=== PATIENT | female | born 1935 | race Caucasian/White ===

== ENCOUNTER 2017-01-21 16:38 | Observation (INO) | payer OTHER ==
[2017-01-21] VITALS (8 sets, daily range): BP systolic 106–142; BP diastolic 63–82; PULSE 58–98; RESP 14–18; TEMP 97.4–98.4; O2SAT 94–99
[~2017-01-21] VITALS: Ht 170.2 cm; Wt 100.0 kg
--- NOTE | 2017-01-21 17:30 | PD ---
HPI Chief Complaint: Cardiac Complaint Time Seen by Provider: 17:25 Travel History International Travel<30 days: No Contact w/Intl Traveler<30days: No Traveled to known affect area: No History of Present Illness HPI 81-year-old female that presents to the ED for evaluation of atrial fibrillation. Per patient she has a chronic history of present fibrillation for almost 20 years. Per patient she is not from town and she is from [place]. Per patient she's coming here for about 3 months. Per patient before coming she had an appointment with her hand patcher as it seemed like her age of fibrillation was starting to act up and they decided that they will do an ablation when she gets back in March. Per patient she's been doing okay and taking her medications but she is not and since yesterday whenever she walks and ambulates she gets palpitations and sensation to her heart rates racing. Per patient she has some discomfort as well. Per patient if she is sitting or laying and not moving she is okay and she has no symptoms. Patient states that right now at this time when she is laying on the bed she has no symptoms whatsoever. Per patient she does state that whenever she ambulate she is the symptoms. She does take Pradaxa. She states that she is compliant with her medications including metoprolol for her heart rate. She denies any chest pain per se. She does state having some shortness of breath with exertion when she feels the palpitations. Again she is completely asymptomatic at this time. She does tell me that she follows with Dr. Farnsworth here but she has not seen him for years. Per patient she tried to make an appointment with this doctor but she was not able to get an appointment until late January. PFSH Past Medical History Hx Anticoagulant Therapy: Yes (PRADAXA 150MG PO DAILY) Atrial Fibrillation: Yes (hx of cardioversion december 12, 2016) Cardiovascular Problems: Yes (AFIB) Respiratory: Yes ?: Not Past Surgical History Hysterectomy: Yes Social History Alcohol Use: Yes (on occasion) Tobacco Use: No Substance Use: No Allergies-Medications (Allergen,Severity, Reaction): Coded Allergies: Amiodarone (Unverified Allergy, Mild, 01/21/17) Fosamax (Unverified Allergy, Mild, 01/21/17) Heparin (Unverified Allergy, Mild, 01/21/17) Lisinopril (Unverified Allergy, Mild, 01/21/17) Reported Meds & Prescriptions Reported Meds & Active Scripts Active Reported Potassium Chloride ER (Potassium Chloride) 10 Meq Tab 10 Meq PO DAILY PRN Lasix (Furosemide) 20 Mg Tab 20 Mg PO DAILY PRN Restasis Opth 0.05% (Cyclosporine Opth 0.05%) 0.05% Emul 1 Drop EACH EYE HS Systane Opth Drops (Polyethylene Glycol-Propylene Glycol Opth Drp) 0.4-0.3% Soln 1-2 Drop EACH EYE DAILY IN THE AM Stool Softener (Docusate Sodium) 100 Mg Cap 100 Mg PO DAILY PRN Calcium 600 + Vit D Tablet (Calcium Carbonate/Vitamin D3) 1 Each Tablet 1 Tab PO DAILY Losartan (Losartan Potassium) 50 Mg Tab 50 Mg PO DAILY Flecainide (Flecainide Acetate) 50 Mg Tab 75 Mg PO BID Metoprolol Tartrate 25 Mg Tab 12.5 Mg PO BID Pradaxa (Dabigatran) 150 Mg Cap 150-300 Mg PO DAILY Alprazolam 0.25 Mg Tab 0.25-0.5 Mg PO HS PRN Tramadol (Tramadol HCl) 50 Mg Tab 50 Mg PO Q8H PRN Levothyroxine (Levothyroxine Sodium) 25 Mcg Tab 225 Mcg PO DAILY Take 1 tablet (25mcg) w/200mcg tab for a total dose of 225mcg Levothyroxine (Levothyroxine Sodium) 200 Mcg Tab 225 Mcg PO DAILY Take 1 tablet (200mcg) w/25mcg tablet for a total dose of 225mcg Review of Systems Except as stated in HPI: all other systems reviewed are Neg Physical Exam Narrative GENERAL: SKIN: Warm and dry. HEAD: Atraumatic. Normocephalic. EYES: Pupils equal and round. No scleral icterus. No injection or drainage. ENT: No nasal bleeding or discharge. Mucous membranes pink and moist. Tongue is midline. No uvula deviation. NECK: Trachea midline. No JVD. CARDIOVASCULAR: Irregular rate and rhythm. No obvious murmurs, S3, S4. RESPIRATORY: No accessory muscle use. Clear to auscultation. Breath sounds equal bilaterally. GASTROINTESTINAL: Abdomen soft, non-tender, nondistended. Hepatic and splenic margins not palpable. MUSCULOSKELETAL: Extremities without clubbing, cyanosis, or edema. No obvious deformities. Full range of motion of the upper and lower extremities bilaterally. Pupils pulses bilaterally. NEUROLOGICAL: Awake and alert. No obvious cranial nerve deficits. Motor grossly within normal limits. Five out of 5 muscle strength in the arms and legs. Normal speech. PSYCHIATRIC: Appropriate mood and affect; insight and judgment normal. Data Data Last Documented VS Vital Signs Date Time Temp Pulse Resp B/P Pulse Ox O2 Delivery O2 Flow Rate FiO2 01/21/17 19:16 91 16 106/82 95 Room Air 01/21/17 16:42 97.4 Orders Electrocardiogram (01/21/17 17:12) Complete Blood Count With Diff (01/21/17 17:12) Basic Metabolic Panel (Bmp) (01/21/17 17:12) Troponin I (01/21/17 17:12) B-Type Natriuretic Peptide (01/21/17 17:12) Magnesium (Mg) (01/21/17 17:12) Thyroid Stimulating Hormone (01/21/17 17:12) Chest, Single Ap (01/21/17 17:12) Iv Access Insert/Monitor (01/21/17 17:12) Ecg Monitoring (01/21/17 17:12) Oximetry (01/21/17 17:12) Orthostatic Vital Signs (01/21/17 18:17) Coag Profile (01/21/17 18:57) D-Dimer (01/21/17 19:24) Admit Order (Ed Use Only) (01/21/17 19:24) Labs Laboratory Tests Test 01/21/17 17:18 White Blood Count 9.6 TH/MM3 Red Blood Count 4.95 MIL/MM3 Hemoglobin 15.4 GM/DL Hematocrit 46.8 % Mean Corpuscular Volume 94.6 FL Mean Corpuscular Hemoglobin 31.1 PG Mean Corpuscular Hemoglobin 32.9 % Concent Red Cell Distribution Width 14.2 % Platelet Count 224 TH/MM3 Mean Platelet Volume 7.8 FL Neutrophils (%) (Auto) 70.9 % Lymphocytes (%) (Auto) 21.0 % Monocytes (%) (Auto) 6.0 % Eosinophils (%) (Auto) 1.7 % Basophils (%) (Auto) 0.4 % Neutrophils # (Auto) 6.8 TH/MM3 Lymphocytes # (Auto) 2.0 TH/MM3 Monocytes # (Auto) 0.6 TH/MM3 Eosinophils # (Auto) 0.2 TH/MM3 Basophils # (Auto) 0.0 TH/MM3 CBC Comment DIFF FINAL Differential Comment Sodium Level 142 MEQ/L Potassium Level 5.0 MEQ/L Chloride Level 105 MEQ/L Carbon Dioxide Level 30.5 MEQ/L Anion Gap 7 MEQ/L Blood Urea Nitrogen 29 MG/DL Creatinine 1.17 MG/DL Estimat Glomerular Filtration 45 ML/MIN Rate Random Glucose 146 MG/DL Calcium Level 9.0 MG/DL Magnesium Level 2.3 MG/DL Troponin I LESS THAN 0.02 NG/ML B-Type Natriuretic Peptide 452 PG/ML Thyroid Stimulating Hormone 0.599 uIU/ML 3rd Gen [facility] Medical Decision Making Medical Screen Exam Complete: Yes Emergency Medical Condition: Yes Medical Record Reviewed: Yes Interpretation(s) EKG show A. fib but no RVR. HR in the 80s. No ischemic changes read by me and attending. Last Impressions Chest X-Ray 01/21/17 1712 Signed Impressions: Service Date/Time: December 17:27 - CONCLUSION: Elevated right hemidiaphragm. Otherwise no evidence of acute process. Nile Hernandez MD CBC & BMP Diagram 01/21/17 17:18 troponin and CKMB negative BNP in the 400s Differential Diagnosis Chest pain versus atrial fibrillation versus A. fib with RVR versus symptomatic A. fib versus ACS versus hyperthyroidism Narrative Course 81-year-old female that presents to the ED for evaluation of atrial fibrillation. Patient was properly examined and was found to have signs and symptoms consistent with symptomatic A. fib. Labs and imaging were ordered. Labs and imaging showed A. fib. Patient has an elevated BNP. Questionable heart failure. Patient again is asymptomatic while sitting. We had the patient ambulate with a monitor and her heart rate did went high to 101 but she was more symptomatic complaining of shortness of breath. My attending Dr. Ortiz evaluated the patient and recommends admission for further workup of exertional dyspnea. Questionable whether this is heart failure. NAVEEN was paged and Dr Dunn agrees to admission. Diagnosis Primary Impression: Dyspnea on exertion Additional Impressions: HF (heart failure) Qualified Code: I50.9 - Heart failure, unspecified heart failure chronicity, unspecified heart failure type A-fib Qualified Code: I48.91 - Atrial fibrillation, unspecified type Murray Lopez Jan 21, 2017 17:30
[2017-01-21 17:38] LABS: AUTOMATED NEUTROPHIL # 6.8 TH/MM3 (1.8-7.7); BASOPHIL % 0.4 % (0.0-2.0); EOSINOPHIL # 0.2 TH/MM3 (0-0.4); EOSINOPHIL % 1.7 % (0.0-4.0); HEMATOCRIT 46.8 % (35.0-46.0); HEMO FLAGS DIFF FINAL; MEAN CELL VOLUME 94.6 FL (80.0-100.0); MEAN CORPUSCULAR HEMOGLOBIN 31.1 PG (27.0-34.0); MEAN CORPUSCULAR HGB CONC 32.9 % (32.0-36.0); NEUT % 70.9 % (16.0-70.0); PLATELET COUNT 224 TH/MM3 (150-450); RED BLOOD COUNT 4.95 MIL/MM3 (4.00-5.30); RED CELL DISTRIBUTION WIDTH 14.2 % (11.6-17.2); WHITE BLOOD COUNT 9.6 TH/MM3 (4.0-11.0)
--- NOTE | 2017-01-21 17:43 | RADRPT ---
EXAM DATE/TIME: 01/21/2017 17:27 [facility] COMPARISON: No previous studies available for comparison. INDICATIONS : Palpitations. MEDICAL HISTORY : A-fib. SURGICAL HISTORY : None. ENCOUNTER: Initial ACUITY: 2 days PAIN SCORE: 0/10 LOCATION: Bilateral chest FINDINGS: Significant elevation of the right hemidiaphragm is noted. Lungs are less clear. Heart is normal in size. CONCLUSION: Elevated right hemidiaphragm. Otherwise no evidence of acute process. Nile Hernandez MD on January 21, 2017 at 17:40 Board Certified Radiologist. This report was verified electronically.
[2017-01-21] MEDS ORDERED: REST0.05 EACH EYE (18:00)
[2017-01-21] MEDS ORDERED: FLEC1TAB8 PO (18:00)
[2017-01-21] MEDS ORDERED: LEVO25TA4 PO (18:00)
[2017-01-21] MEDS ORDERED: LOSA50TA PO (18:00)
[2017-01-21] MEDS ORDERED: ALPR0.25 PO (18:00)
[2017-01-21] MEDS ORDERED: CALC600T64 PO (18:00)
[2017-01-21] MEDS ORDERED: TRAM50TA PO (18:00)
[2017-01-21] MEDS ORDERED: SYSTSOL EACH EYE (18:00)
[2017-01-21] MEDS ORDERED: PRAD150C PO (18:00)
[2017-01-21] MEDS ORDERED: LEVO200T4 PO (18:00)
[2017-01-21] MEDS ORDERED: METO25TA3 PO (18:00)
[2017-01-21] MEDS ORDERED: FURO1TAB62 PO (18:00)
[2017-01-21] MEDS ORDERED: POTA10TA2 PO (18:00)
[2017-01-21] MEDS ORDERED: STOO100C PO (18:00)
[2017-01-21 18:10] LABS: ANION GAP 7 MEQ/L (5-15); BICARBONATE 30.5 MEQ/L (21.0-32.0); BLOOD UREA NITROGEN 29 MG/DL (7-18); CHLORIDE 105 MEQ/L (98-107); GLOMERULAR FILTRATION RATE 45 ML/MIN (>89); MAGNESIUM 2.3 MG/DL (1.5-2.5); SODIUM (NA) 142 MEQ/L (136-145)
[2017-01-21 19:39] LABS: PROTHROMBIN TIME - PATIENT 10.7 SEC (9.8-11.6)
--- NOTE | 2017-01-21 19:58 | EKG ---
Date Performed: 01/21/2017 Time Performed: 16:58:15 PTAGE: 81 years EKG: ATRIAL FIBRILLATION MARKED LEFT AXIS DEVIATION ANTEROSEPTAL MYOCARDIAL INFARCTION ABNORMAL ECG NO PREVIOUS TRACING DOCTOR: Jr Morales Interpretating Date/Time 01/21/2017 19:56:51
[2017-01-21] MEDS ORDERED: NALOXONE HCL 0.4 MG/ML AMP IV PRN (20:00)
[2017-01-21] MEDS ORDERED: SODIUM CHLORIDE 0.9% FLUSH 10 ML FLUSH IV FLUSH PRN (20:00)
[2017-01-21] MEDS: SODIUM CHLORIDE 0.9% FLUSH 10 ML FLUSH IV FLUSH SCH (22:02)
[2017-01-22 03:50] VITALS: BP 116/59; PULSE 63; RESP 17; TEMP 98; O2SAT 96
[2017-01-22 04:05] VITALS: PULSE 58
--- NOTE | 2017-01-22 05:19 | HHI.HP ---
HPI Service [facility] Primary Care Physician No Primary Care Physician Admission Diagnosis dyspnea on excertion, a. fib, CHF Diagnoses: (1) A-fib (2) Dyspnea on exertion Chief Complaint: weakness and shortness of breath Travel History International Travel<30 Days: No Contact w/Intl Traveler <30 Da: No Traveled to Known Affected Are: No History of Present Illness Written by June Argueta, acting as scribe for Dr. Dunn on 01/22/17 at 05:16. The patient is visiting from [place], [place]. Has a history of atrial fibrillation. Had cardioversion and is set up for ablation in March. Two days ago, she woke up and could tell she was in a-fib because of weakness and shortness of breath. , symptoms became so severe that she couldn't walk around the house without becoming extremely dizzy and short of breath. HR was 110 on blood pressure cuff - BP was 170 systolic and because of severity of symptoms, she came into the ER. Denies n/v/ black or red stool, no peripheral edema, chest pain/tightness, dysuria Echocardiogram at home recently./ Angiogram one year ago and it was "clear". Review of Systems Except as stated in HPI: all other systems reviewed are Neg Past Family Social History Past Medical History Atrial fibrillation Hypothyroidism Right kidney cyst Denies CHF, hypertension, diabetes mellitus, CAD, breathing problems, liver problems, DVT, PE, CVA, seizures, or cancers . Past Surgical History Cholecystectomy Appendectomy Vaginal hysterectomy Right carpal tunnel release Right shoulder repair Vocal cord repair on left 15 years ago Laminectomies x 2 . Reported Medications Reported Meds & Active Scripts Active Reported Potassium Chloride ER (Potassium Chloride) 10 Meq Tab 10 Meq PO DAILY PRN Lasix (Furosemide) 20 Mg Tab 20 Mg PO DAILY PRN Restasis Opth 0.05% (Cyclosporine Opth 0.05%) 0.05% Emul 1 Drop EACH EYE HS Systane Opth Drops (Polyethylene Glycol-Propylene Glycol Opth Drp) 0.4-0.3% Soln 1-2 Drop EACH EYE DAILY IN THE AM Stool Softener (Docusate Sodium) 100 Mg Cap 100 Mg PO DAILY PRN Calcium 600 + Vit D Tablet (Calcium Carbonate/Vitamin D3) 1 Each Tablet 1 Tab PO DAILY Losartan (Losartan Potassium) 50 Mg Tab 50 Mg PO DAILY Flecainide (Flecainide Acetate) 50 Mg Tab 75 Mg PO BID Metoprolol Tartrate 25 Mg Tab 12.5 Mg PO BID Pradaxa (Dabigatran) 150 Mg Cap 150-300 Mg PO DAILY Alprazolam 0.25 Mg Tab 0.25-0.5 Mg PO HS PRN Tramadol (Tramadol HCl) 50 Mg Tab 50 Mg PO Q8H PRN Levothyroxine (Levothyroxine Sodium) 25 Mcg Tab 225 Mcg PO DAILY Take 1 tablet (25mcg) w/200mcg tab for a total dose of 225mcg Levothyroxine (Levothyroxine Sodium) 200 Mcg Tab 225 Mcg PO DAILY Take 1 tablet (200mcg) w/25mcg tablet for a total dose of 225mcg . Allergies: Coded Allergies: Amiodarone (Unverified Allergy, Mild, 01/21/17) Fosamax (Unverified Allergy, Mild, 01/21/17) Heparin (Unverified Allergy, Mild, 01/21/17) Lisinopril (Unverified Allergy, Mild, 01/21/17) Active Ordered Medications Current Medications Sodium Chloride (NS Flush) 2 ml UNSCH PRN IV FLUSH FLUSH AFTER USING IV ACCESS ; Start 01/21/17 at 20:00 Sodium Chloride (NS Flush) 2 ml BID IV FLUSH Last administered on 01/21/17t 22: 02; Start 01/21/17 at 21:00 Naloxone HCl (Narcan Inj) 0.4 mg UNSCH PRN IV SEE LABEL COMMENTS; Start at 20:00 . Family History Youngest of 10 children No premature cardiac arrest Parkinson's in brother . Social History Tobacco: when she was 22 y/o Alcohol: glass of wine once or twice per month Illicit Drugs: denies . Physical Exam Vital Signs Vital Signs Date Time Temp Pulse Resp B/P Pulse Ox O2 Delivery O2 Flow Rate FiO2 01/22/17 03:50 98.0 63 17 116/59 96 01/21/17 23:40 58 01/21/17 23:38 98.2 58 18 121/65 94 01/21/17 21:21 60 01/21/17 21:15 98.4 60 17 119/63 99 01/21/17 19:16 91 16 106/82 95 Room Air 01/21/17 18:50 98 18 142/78 95 Room Air 01/21/17 17:17 18 98 Room Air 01/21/17 16:42 97.4 84 14 135/65 95 Room Air Physical Exam GENERAL: This is an elderly female patient, in no apparent distress. SKIN: No rashes, ecchymoses. Cool and dry. Multiple telangiectasias seen in noted on bilateral lower extremities. HEAD: Atraumatic. Normocephalic. EYES: No scleral icterus. No injection or drainage. ENT: Nose without bleeding, purulent drainage. NECK: Trachea midline. No JVD or lymphadenopathy. CARDIOVASCULAR: Regular rate and rhythm without murmurs, gallops, or rubs. RESPIRATORY: Clear to auscultation. Breath sounds equal bilaterally. No wheezes , rales, or rhonchi. GASTROINTESTINAL: Abdomen soft, non-tender, nondistended. No guarding. MUSCULOSKELETAL: Extremities without clubbing, cyanosis, or edema. No calf tenderness. NEUROLOGICAL: Awake and alert. Motor and sensory grossly within normal limits. Normal speech. . Laboratory Laboratory Tests Test 01/21/17 01/21/17 01/21/17 17:18 19:15 19:45 White Blood Count 9.6 Red Blood Count 4.95 Hemoglobin 15.4 Hematocrit 46.8 Mean Corpuscular Volume 94.6 Mean Corpuscular Hemoglobin 31.1 Mean Corpuscular Hemoglobin 32.9 Concent Red Cell Distribution Width 14.2 Platelet Count 224 Mean Platelet Volume 7.8 Neutrophils (%) (Auto) 70.9 Lymphocytes (%) (Auto) 21.0 Monocytes (%) (Auto) 6.0 Eosinophils (%) (Auto) 1.7 Basophils (%) (Auto) 0.4 Neutrophils # (Auto) 6.8 Lymphocytes # (Auto) 2.0 Monocytes # (Auto) 0.6 Eosinophils # (Auto) 0.2 Basophils # (Auto) 0.0 CBC Comment DIFF FINAL Differential Comment Sodium Level 142 Potassium Level 5.0 Chloride Level 105 Carbon Dioxide Level 30.5 Anion Gap 7 Blood Urea Nitrogen 29 Creatinine 1.17 Estimat Glomerular Filtration 45 Rate Random Glucose 146 Calcium Level 9.0 Magnesium Level 2.3 Troponin I LESS THAN 0.02 B-Type Natriuretic Peptide 452 Thyroid Stimulating Hormone 0.599 3rd Gen Prothrombin Time 10.7 Prothromb Time International 1.0 Ratio Activated Partial 27.0 Thromboplast Time D-Dimer Quantitative (PE/DVT) 0.36 Result Diagram: 01/21/17 1718 01/21/17 1718 Imaging Last Impressions Chest X-Ray 01/21/171711 Signed Impressions: Service Date/Time: , January 21, 2017 17:27 - CONCLUSION: Elevated right hemidiaphragm. Otherwise no evidence of acute process. Nile Hernandez MD . Assessment and Plan Problem List: (1) A-fib ICD Code: I48.91 Status: Acute (2) Dyspnea on exertion ICD Code: R06.09 Status: Acute Assessment and Plan Atrial fibrillation - symptomatic - now in SR - obtain echocardiogram report from math professor in [place] - supposed to have an ablation in March 2017 - continuous cardiac telemetry to monitor heart rate and rhythm - TSH 0.599 on admission - Troponin I < 0.02 - has seen Dr. Landers here locally in the past, consult if needed Suspected CHF - BNP 452 - monitor strict I and Os q shift Acute Renal Insufficiency - BUN 29, Creatinine 1.17, estimated GFR - 45 - repeat BMP in a.m. and follow trends - avoid nephrotoxins DVT prophylaxis - continue home Pradaxa . Discussed Condition With ER physician, RN, and patient . Problem Qualifiers (1) A-fib: Qualified Code: I48.91 - Atrial fibrillation, unspecified type June Argueta Jan 22, 2017 05:19
[2017-01-22] MEDS ORDERED: traMADol HCL 50 MG TAB PO PRN (06:15)
[2017-01-22 07:50] VITALS: BP 117/66; PULSE 63; RESP 18; TEMP 97.7; O2SAT 97
[2017-01-22 08:39] LABS: AUTOMATED NEUTROPHIL # 4.2 TH/MM3 (1.8-7.7); BASOPHIL # 0.1 TH/MM3 (0-0.2); BASOPHIL % 0.8 % (0.0-2.0); EOSINOPHIL # 0.2 TH/MM3 (0-0.4); EOSINOPHIL % 3.5 % (0.0-4.0); HEMO FLAGS DIFF FINAL; LYMPH % 25.8 % (9.0-44.0); LYMPHOCYTE # 1.8 TH/MM3 (1.0-4.8); MEAN CELL VOLUME 94.2 FL (80.0-100.0); MEAN CORPUSCULAR HEMOGLOBIN 31.1 PG (27.0-34.0); MONO % 8.1 % (0.0-8.0); NEUT % 61.8 % (16.0-70.0); PLATELET COUNT 163 TH/MM3 (150-450); RED BLOOD COUNT 4.46 MIL/MM3 (4.00-5.30); RED CELL DISTRIBUTION WIDTH 14.6 % (11.6-17.2); WHITE BLOOD COUNT 6.8 TH/MM3 (4.0-11.0)
[2017-01-22 09:00] LABS: BICARBONATE 27.2 MEQ/L (21.0-32.0); POTASSIUM 4.5 MEQ/L (3.5-5.1)
[2017-01-22] MEDS ORDERED: METOPROLOL TARTRATE 25 MG TAB PO SCH ×2 (09:00→14:00)
[2017-01-22] MEDS ORDERED: FLECAINIDE ACETATE 100 MG TAB PO SCH (09:00)
[2017-01-22] MEDS ORDERED: NON-FORMULARY DRUG (Polyethylene Glycol-Propylene Glycol Opth Drp (Systane Opth Drops) 0 D EACH EYE SCH (09:00)
[2017-01-22] MEDS ORDERED: DABIGATRAN ETEXILATE 150 MG CAP PO SCH (09:00)
[2017-01-22] MEDS ORDERED: LOSARTAN 50 MG TAB PO SCH (09:00)
[2017-01-22] MEDS ORDERED: LEVOTHYROXINE SODIUM 200 MCG TAB PO SCH (09:00)
[2017-01-22] MEDS ORDERED: LEVOTHYROXINE SODIUM 25 MCG TAB PO SCH (09:00)
[2017-01-22] MEDS ORDERED: FLECAINIDE 50 MG PO SCH (09:00)
[2017-01-22] MEDS: SODIUM CHLORIDE 0.9% FLUSH 10 ML FLUSH IV FLUSH SCH (09:59)
--- NOTE | 2017-01-22 11:01 | HHI.PR ---
Subjective Remarks Follow-up for atrial fibrillation. The patient is feeling well at this time and is asking go home. She denies any chest pain, shortness of breath. She states she's been ambulating with no difficulties or dyspnea. She states she's been in sinus rhythm since about midnight. She denies any lower extremity swelling. She states the weakness and shortness of breath she had upon presentation is typical of her normal exacerbations of atrial fibrillation, and these symptoms have resolved. The patient has a long history of proximal atrial fibrillation for 14 years. She follows closely with cardiology and electrophysiology back home in [place]. She is currently visiting this area for 3 months. She does have an appointment to see cardiology as outpatient, Dr. Landers, in 10 days. She had an echocardiogram done 10 days ago in [place] that was reportedly unremarkable. Her software support technician is planning on an ablation when she goes back to [place] in a few months. She states her software support technician 10 days ago did decrease her metoprolol from 25 mg twice a day to 12.5 mg twice a day. The patient states she was recently started on losartan 50 mg about one month ago due to blood pressure. She does check her blood pressure at home. Objective Vitals Vital Signs Date Time Temp Pulse Resp B/P Pulse Ox O2 Delivery O2 Flow Rate FiO2 01/22/17 07:50 97.7 63 18 117/66 97 01/22/17 04:05 58 01/22/17 03:50 98.0 63 17 116/59 96 01/21/17 23:40 58 01/21/17 23:38 98.2 58 18 121/65 94 01/21/17 21:21 60 01/21/17 21:15 98.4 60 17 119/63 99 01/21/17 19:16 91 16 106/82 95 Room Air 01/21/17 18:50 98 18 142/78 95 Room Air 01/21/17 17:17 18 98 Room Air 01/21/17 16:42 97.4 84 14 135/65 95 Room Air I/O 01/21/17 01/21/17 01/21/17 01/22/17 01/22/17 01/22/17 07:00 15:00 23:00 07:00 15:00 23:00 Intake Total 480 ml Balance 480 ml Intake Oral 480 ml # Voids 2 Result Diagram: 01/22/17 0801 01/22/17 0801 Imaging Last Impressions Chest X-Ray 01/21/17 1712 Signed Impressions: Service Date/Time: , January 21, 2017 17:27 - CONCLUSION: Elevated right hemidiaphragm. Otherwise no evidence of acute process. Nile Hernandez MD Objective Remarks GENERAL: Well-developed well-nourished. In no acute distress. SKIN: Warm and dry. No lesions noted. HEENT: Normocephalic. Pupils equal and round. Mucous membranes pink and moist. CARDIOVASCULAR: Regular rate and rhythm. No murmur appreciated. RESPIRATORY: No accessory muscle use. Clear to auscultation. Breath sounds equal bilaterally. GASTROINTESTINAL: Abdomen soft, non-tender, nondistended. Bowel sounds x4. MUSCULOSKELETAL: No obvious deformities. No clubbing or cyanosis. No edema. NEUROLOGICAL: Awake and alert. No focal neurological deficits. Moves upper and lower extremities spontaneously. Normal speech. PSYCHIATRIC: Appropriate mood and affect; insight and judgment appear to be very good. A/P Problem List: (1) A-fib ICD Code: I48.91 Status: Chronic (2) Dyspnea on exertion ICD Code: R06.09 Status: Resolved Assessment and Plan 81-year-old female with past medical history of atrial fibrillation, hypothyroidism who presented for weakness and shortness of breath. Atrial fibrillation - symptomatic: Patient presented with symptoms consistent with rapid atrial fibrillation, however initial EKG shows heart rate 87. Patient has been NSR overnight on review of telemetry for rate currently 66. BNP was mildly elevated. Symptoms have resolved with rate control. No clinical signs or symptoms of CHF. Suspect symptoms are due to recent decrease in metoprolol from 25 mg twice daily to 12.5 mg twice daily. - Increase metoprolol to 12.5 mg 3 times daily - Telemetry monitoring - Continue scheduled outpatient follow-up with Dr. Landers - Continue flecainide and Pradaxa. - Patient refused repeat echocardiogram as she had a recent reportedly normal echocardiogram as outpatient SUZE: Creatinine 1.17, no previous labs or comparison. Creatinine improved to 0.95 overnight spontaneously. Suspect this is due to improved renal perfusion not a cardiac output is better in sinus rhythm. -Resolved Hypertension: BP is a little soft. Increase metoprolol as above. With increase in metoprolol, we will decrease losartan to 25 mg daily. Plan of care discussed with the patient who is agreeable to monitor home BPs and follow-up. - Continue outpatient PCP and cardiology follow-up. DVT prophylaxis - continue home Pradaxa Discharge Planning Discharge patient to home Condition on discharge: Improved Heart healthy Diet as tolerated Regular activity Rx written: Metoprolol, losartan Follow-up with primary care physician and cardiology Problem Qualifiers (1) A-fib: Qualified Code: I48.0 - Paroxysmal atrial fibrillation Arthur Triplett Jan 22, 2017 11:01
[2017-01-22] MEDS ORDERED: METO25TA3 PO (11:03)
[2017-01-22] MEDS ORDERED: COZA50TA PO (11:03)
[2017-01-22] MEDS ORDERED: PILL SPLITTER OTHER PRN (14:00)
[2017-01-22] MEDS ORDERED: NON-FORMULARY DRUG (Cyclosporine Opth 0.05% (Restasis Opth 0.05%) 1 DROP) EACH EYE SCH (21:00)
[2017-01-23] MEDS ORDERED: LEVOTHYROXINE SODIUM 125 MCG TAB PO SCH (06:30)
[2017-01-23] MEDS ORDERED: LEVOTHYROXINE SODIUM 100 MCG TAB PO SCH (06:30)
[2017-01-23] MEDS ORDERED: LOSARTAN 25 MG TAB PO SCH (09:00)
== END 2017-01-22 15:30 | disposition home or self-care (01) ==
LOC: NEPC 16:38 → NEDA 19:26 → NEPHCDU 21:06
PROVIDERS: ADMIT Hospitalist; ATTEND Hospitalist
DX: I48.91 Unspecified atrial fibrillation (principal); R06.00 Dyspnea, unspecified; N17.9 Acute kidney failure, unspecified; R06.02 Shortness of breath; R53.1 Weakness; R00.2 Palpitations; R91.8 Other nonspecific abnormal finding of lung field; R94.31 Abnormal electrocardiogram [ECG] [EKG]; I11.0 Hypertensive heart disease with heart failure; I50.9 Heart failure, unspecified; I25.2 Old myocardial infarction; E03.9 Hypothyroidism, unspecified; Z79.899 Other long term (current) drug therapy; Z79.01 Long term (current) use of anticoagulants
CPT/HCPCS: 71010; 80048; 83735; 83880; 84443; 84484; 85025; 85379; 85610; 85730; 93005; 99285; G0378